=== PATIENT | male | born 1945 | race Caucasian/White ===

== ENCOUNTER 2020-08-17 16:31 | Inpatient (IN) | payer OTHER ==
[~2020-08-17] VITALS: Ht 185.4 cm; Wt 70.0 kg
[2020-08-17] MEDS: PROPOFOL 100 ML IV SCH (01:00)
[2020-08-17] MEDS ORDERED: ACETAMINOPHEN 325 MG RECT SUPP PR ONE (16:44)
[2020-08-17] MEDS ORDERED: DEXTROSE 50% SYRINGE 50 ML IV ONE (16:56)
[2020-08-17] MEDS ORDERED: DEXTROSE (50%) 50ML SYRG IV ONE (17:15)
[2020-08-17 17:20] LABS: Basophils # (auto) 0.1 10 ^3/uL (0-0.2); Basophils % (auto) 1.6 % (0.0-2.0); Eosinophils # (auto) 0.1 10 ^3/uL (0-0.8); Eosinophils % (auto) 1.5 % (0.0-7.0); Hematocrit 39.8 % (41.0-53.0); Hemoglobin 14.3 g/dL (13.5-17.5); Lymphocytes # (auto) 2.3 10 ^3/uL (0.4-5.4); Lymphocytes % (auto) 45.9 % (10.0-50.0); Mean Corpuscular Hgb Conc. 35.9 g/dL (32.0-36.0); Mean Corpuscular Volume 100.4 fL (80.0-100.0); Monocytes # (auto) 0.3 10 ^3/uL (0-1.3); Monocytes % (auto) 5.6 % (0.0-12.0); Neutrophils # (auto) 2.2 10 ^3/uL (1.6-8.6); Neutrophils % (auto) 45.4 % (37.0-80.0); Nucleated Red Blood Cells % 0.1 %; Red Blood Cells 3.96 10^6/uL (4.5-5.90); White Blood Cell 4.9 10^3/uL (4.4-10.8)
[2020-08-17 17:23] LABS: Urine WBC None Seen /hpf (0 - 3)
[2020-08-17] MEDS ORDERED: ETOMIDATE (2MG/ML) 20ML VIAL IV ONE (17:30)
[2020-08-17] MEDS ORDERED: ROCURONIUM 10MG/ML 10ML VIAL IV ONE ×2 (17:30→17:45)
[2020-08-17 17:33] LABS: Urine Bacteria NONE SEEN /hpf (None Seen); Urine Blood Negative /uL (Negative); Urine Specific Gravity 1.003 (1.001-1.035)
[2020-08-17 17:36] LABS: Lactic Acid w/Reflex 5.2 mmol/L (0.4-2.0)
[2020-08-17] MEDS: MIDAZOLAM DRIP 50 mg/50mL 50 ML IV SCH ×2 (17:38→20:05)
[2020-08-17 17:46] LABS: INR 0.97 (0.9-1.15); Partial Thromboplastin Time 24.2 sec (23.0-31.2)
[2020-08-17 17:49] LABS: Amphetamine Screen, Urine NEGATIVE (NEGATIVE); Barbiturate Scree,Urine NEGATIVE (NEGATIVE); Benzodiazephine Screen, Urine NEGATIVE (NEGATIVE); Cannabinoid Screen, Urine NEGATIVE (NEGATIVE); Cocaine Screen, Urine NEGATIVE (NEGATIVE); Opiate Scree,Urine NEGATIVE (NEGATIVE); Phencyclidine Screen, Urine NEGATIVE (NEGATIVE)
[2020-08-17 17:50] LABS: Albumin 2.7 g/dL (3.4-5.0); BUN/Creatinine Ratio 8.4; Calcium 7.4 mg/dL (8.5-10.1); Magnesium 1.6 mg/dL (1.6-2.6); Potassium 4.7 mmol/L (3.5-5.1)
[2020-08-17 17:53] VITALS: BP 113/57
[2020-08-17 17:55] LABS: Bilirubin, Total 0.3 mg/dL (0.2-1.0); Total Protein 5.9 g/dL (6.4-8.2)
[2020-08-17] MEDS: NOREPINEPHRINE 8 MG/250ML KIT 250 ML IV SCH (18:45)
[2020-08-17 19:49] VITALS: BP 96/63
[2020-08-17 20:39] VITALS: BP 96/63
[2020-08-17] MEDS ORDERED: cefTRIAXone 1GM/50ML D5W 50 ML IV ONE (20:45)
[2020-08-17] MEDS ORDERED: NITROGLYCERIN 0.4 MG SL TAB SL PRN (20:45)
[2020-08-17] MEDS ORDERED: MORPHINE SULFATE INJECTION 2 MG/ML SYRG IV PRN (20:45)
[2020-08-17] MEDS ORDERED: ONDANSETRON HCL 4 MG/2 ML VIAL IV PRN (20:45)
[2020-08-17 23:20] VITALS: BP 107/62
[2020-08-17] MEDS ORDERED: ENOXAPARIN SOD 100 MG/1 ML SYRINGE SC ONE (23:30)
[2020-08-18] VITALS (102 sets, daily range): BP systolic 80–134; BP diastolic 49–81
[2020-08-18] MEDS: SODIUM CHLORIDE 0.9% 1,000 ML IV SCH ×3 (01:41→17:22)
[2020-08-18 04:56] LABS: Basophils # (auto) 0.1 10 ^3/uL (0-0.2); Basophils % (auto) 0.7 % (0.0-2.0); Eosinophils # (auto) 0 10 ^3/uL (0-0.8); Eosinophils % (auto) 0.2 % (0.0-7.0); Hemoglobin 14.2 g/dL (13.5-17.5); Lymphocytes # (auto) 1.5 10 ^3/uL (0.4-5.4); Mean Corpuscular Hemoglobin 36.1 pg (28.0-32.0); Monocytes # (auto) 0.5 10 ^3/uL (0-1.3); Neutrophils # (auto) 5.6 10 ^3/uL (1.6-8.6); Red Cell Distribution Width 13.3 % (11.8-14.3)
[2020-08-18 04:58] LABS: Hematocrit 39.3 % (41.0-53.0); Lymphocytes % (auto) 19.9 % (10.0-50.0); Mean Corpuscular Hgb Conc. 36.1 g/dL (32.0-36.0); Mean Corpuscular Volume 100.1 fL (80.0-100.0); Monocytes % (auto) 6.6 % (0.0-12.0); Neutrophils % (auto) 72.6 % (37.0-80.0); Nucleated Red Blood Cells % 0.1 %; Red Blood Cells 3.93 10^6/uL (4.5-5.90); White Blood Cell 7.7 10^3/uL (4.4-10.8)
[2020-08-18 05:16] LABS: Albumin 2.9 g/dL (3.4-5.0); Calcium 7.6 mg/dL (8.5-10.1); Potassium 3.7 mmol/L (3.5-5.1)
[2020-08-18 05:23] LABS: BUN/Creatinine Ratio 13.9; Bilirubin, Total 1.1 mg/dL (0.2-1.0); Total Protein 6.1 g/dL (6.4-8.2)
[2020-08-18] MEDS ORDERED: MAGNESIUM SULFATE 1GM/100ML 100 ML IV ONE (09:15)
[2020-08-18 09:43] LABS: Cholesterol 124 mg/dL (< 200); HDL Cholesterol 70 mg/dL (40-59); LDL Cholesterol 49 mg/dL (< 100); Triglycerides 84 mg/dL (< 150)
[2020-08-18] MEDS: cefTRIAXone 1GM/50ML D5W 50 ML IV SCH (09:48)
[2020-08-18] MEDS: POTASSIUM CHL 20MEQ/100ML 100 ML IV SCH ×2 (09:48→11:57)
[2020-08-18] MEDS: ASPirin 81 mg TAB PO SCH (09:49)
[2020-08-18] MEDS: PANTOPRAZOLE 40 MG/10 ML VIAL INJ IV SCH (09:49)
[2020-08-18] MEDS: MIDAZOLAM DRIP 50 mg/50mL 50 ML IV SCH ×3 (10:00→23:30)
[2020-08-18] MEDS: ENOXAPARIN SOD 40 MG/0.4 ML SYRINGE SC SCH (10:08)
[2020-08-18] MEDS: PROPOFOL 100 ML IV SCH ×2 (12:20→18:09)
[2020-08-18] MEDS: NOREPINEPHRINE 8 MG/250ML KIT 250 ML IV SCH ×2 (12:20→18:18)
[2020-08-18] MEDS ORDERED: FOLIC ACID 1 MG, MULTIPLE VITAMIN 10 ML, MAGNESIUM SULF SDV 50% 8 MEQ, THIAMINE INJ 100... INJ ONE ×5 (14:15)
[2020-08-18 15:26] LABS: Folate (Folic Acid) 15.41 ng/mL (5.38-24)
[2020-08-18] MEDS ORDERED: SODIUM CHLORIDE 0.9% 2,000 ML IV ONE (16:45)
[2020-08-18] MEDS: IPRATROPIUM BROM 0.5 MG/2.5ML INH SOL NEB SCH (18:44)
[2020-08-18] MEDS: ALBUTEROL SULF 2.5 MG/0.5ML(0.5%) NEB SOLN NEB SCH (18:44)
[2020-08-19] VITALS (80 sets, daily range): BP systolic 83–135; BP diastolic 48–79
[2020-08-19] MEDS: IPRATROPIUM BROM 0.5 MG/2.5ML INH SOL NEB SCH ×4 (00:21→18:36)
[2020-08-19] MEDS: ALBUTEROL SULF 2.5 MG/0.5ML(0.5%) NEB SOLN NEB SCH ×4 (00:21→18:36)
[2020-08-19] MEDS: SODIUM CHLORIDE 0.9% 1,000 ML IV SCH ×3 (01:20→21:56)
[2020-08-19 05:17] LABS: Basophils # (auto) 0.1 10 ^3/uL (0-0.2); Eosinophils # (auto) 0 10 ^3/uL (0-0.8); Hemoglobin 12.6 g/dL (13.5-17.5)
[2020-08-19 05:19] LABS: Basophils % (auto) 0.9 % (0.0-2.0); Eosinophils % (auto) 0.4 % (0.0-7.0); Hematocrit 36.1 % (41.0-53.0); Lymphocytes # (auto) 0.9 10 ^3/uL (0.4-5.4); Lymphocytes % (auto) 10.1 % (10.0-50.0); Mean Corpuscular Hemoglobin 35.4 pg (28.0-32.0); Mean Corpuscular Hgb Conc. 34.8 g/dL (32.0-36.0); Mean Corpuscular Volume 101.7 fL (80.0-100.0); Monocytes # (auto) 0.7 10 ^3/uL (0-1.3); Monocytes % (auto) 7.3 % (0.0-12.0); Neutrophils # (auto) 7.3 10 ^3/uL (1.6-8.6); Neutrophils % (auto) 81.3 % (37.0-80.0); Nucleated Red Blood Cells % 0.1 %; Red Blood Cells 3.55 10^6/uL (4.5-5.90); Red Cell Distribution Width 13.5 % (11.8-14.3)
[2020-08-19 05:35] LABS: Albumin 2.2 g/dL (3.4-5.0); Bilirubin, Direct 0.2 mg/dL (0-0.2); Calcium 7.2 mg/dL (8.5-10.1); Magnesium 2.3 mg/dL (1.6-2.6); Potassium 4.2 mmol/L (3.5-5.1)
[2020-08-19 05:41] LABS: BUN/Creatinine Ratio 16.2; Bilirubin, Total 0.6 mg/dL (0.2-1.0); Total Protein 4.8 g/dL (6.4-8.2)
[2020-08-19] MEDS: PROPOFOL 100 ML IV SCH (06:04)
[2020-08-19] MEDS: MIDAZOLAM DRIP 50 mg/50mL 50 ML IV SCH ×2 (09:22→19:30)
[2020-08-19] MEDS: cefTRIAXone 1GM/50ML D5W 50 ML IV SCH (09:22)
[2020-08-19] MEDS: ASPirin 81 mg TAB PO SCH (09:33)
[2020-08-19] MEDS: PANTOPRAZOLE 40 MG/10 ML VIAL INJ IV SCH (09:35)
[2020-08-19] MEDS: ENOXAPARIN SOD 40 MG/0.4 ML SYRINGE SC SCH (09:35)
[2020-08-19] MEDS: FOLIC ACID 1 MG, MULTIPLE VITAMIN 10 ML, MAGNESIUM SULF SDV 50% 8 MEQ, THIAMINE INJ 100... INJ SCH ×5 (13:14)
[2020-08-19] MEDS: NOREPINEPHRINE 8 MG/250ML KIT 250 ML IV SCH (18:15)
[2020-08-20] VITALS (87 sets, daily range): BP systolic 86–159; BP diastolic 48–102
[2020-08-20] MEDS: IPRATROPIUM BROM 0.5 MG/2.5ML INH SOL NEB SCH ×4 (00:13→18:27)
[2020-08-20] MEDS: ALBUTEROL SULF 2.5 MG/0.5ML(0.5%) NEB SOLN NEB SCH ×4 (00:13→18:27)
[2020-08-20] MEDS: PROPOFOL 100 ML IV SCH (02:55)
[2020-08-20] MEDS: MIDAZOLAM DRIP 50 mg/50mL 50 ML IV SCH ×2 (05:08→22:48)
[2020-08-20 05:46] LABS: Basophils # (auto) 0 10 ^3/uL (0-0.2); Eosinophils # (auto) 0 10 ^3/uL (0-0.8); Lymphocytes # (auto) 0.7 10 ^3/uL (0.4-5.4); Nucleated Red Blood Cells % 0.1 %; Red Blood Cells 3.44 10^6/uL (4.5-5.90); Red Cell Distribution Width 13.3 % (11.8-14.3)
[2020-08-20 05:50] LABS: Basophils % (auto) 0.5 % (0.0-2.0); Eosinophils % (auto) 0.4 % (0.0-7.0); Hematocrit 34.9 % (41.0-53.0); Hemoglobin 12.1 g/dL (13.5-17.5); Lymphocytes % (auto) 7.7 % (10.0-50.0); Mean Corpuscular Hemoglobin 35.1 pg (28.0-32.0); Mean Corpuscular Hgb Conc. 34.6 g/dL (32.0-36.0); Mean Corpuscular Volume 101.4 fL (80.0-100.0); Monocytes # (auto) 0.5 10 ^3/uL (0-1.3); Monocytes % (auto) 5.1 % (0.0-12.0); Neutrophils # (auto) 7.8 10 ^3/uL (1.6-8.6); Neutrophils % (auto) 86.3 % (37.0-80.0); White Blood Cell 9.1 10^3/uL (4.4-10.8)
[2020-08-20 06:17] LABS: Potassium 3.4 mmol/L (3.5-5.1)
[2020-08-20 06:26] LABS: Albumin 2.1 g/dL (3.4-5.0); BUN/Creatinine Ratio 12.2; Bilirubin, Total 0.8 mg/dL (0.2-1.0); Calcium 7.4 mg/dL (8.5-10.1); Magnesium 2.1 mg/dL (1.6-2.6); Total Protein 5.2 g/dL (6.4-8.2)
[2020-08-20] MEDS: cefTRIAXone 1GM/50ML D5W 50 ML IV SCH ×2 (09:00→12:36)
[2020-08-20] MEDS: ASPirin 81 mg TAB PO SCH (10:30)
[2020-08-20] MEDS: PANTOPRAZOLE 40 MG/10 ML VIAL INJ IV SCH (10:30)
[2020-08-20] MEDS: ENOXAPARIN SOD 40 MG/0.4 ML SYRINGE SC SCH (10:30)
[2020-08-20] MEDS ORDERED: POTASSIUM CHL 20MEQ/100ML 100 ML IV ONE (10:45)
[2020-08-20] MEDS: SODIUM CHLORIDE 0.9% 1,000 ML IV SCH ×2 (10:52→18:45)
[2020-08-20] MEDS: FOLIC ACID 1 MG, MULTIPLE VITAMIN 10 ML, MAGNESIUM SULF SDV 50% 8 MEQ, THIAMINE INJ 100... INJ SCH ×5 (12:37)
[2020-08-20] MEDS: fentaNYL Drip 2500mCg/250mlNS 250 ML IV SCH (19:30)
[2020-08-20] MEDS: chlordiazePOXIDE HCL 25 MG CAP PO PRN (20:05)
[2020-08-20] MEDS: ACETAMINOPHEN 325 MG TAB PO PRN (20:05)
[2020-08-21] VITALS (106 sets, daily range): BP systolic 96–136; BP diastolic 51–87
[2020-08-21] MEDS: IPRATROPIUM BROM 0.5 MG/2.5ML INH SOL NEB SCH ×5 (00:02→23:45)
[2020-08-21] MEDS: ALBUTEROL SULF 2.5 MG/0.5ML(0.5%) NEB SOLN NEB SCH ×5 (00:02→23:45)
[2020-08-21] MEDS: MIDAZOLAM DRIP 50 mg/50mL 50 ML IV SCH ×3 (04:22→19:43)
[2020-08-21] MEDS: SODIUM CHLORIDE 0.9% 1,000 ML IV SCH ×2 (04:45→14:56)
[2020-08-21] MEDS: NOREPINEPHRINE 8 MG/250ML KIT 250 ML IV SCH ×2 (04:50→18:15)
[2020-08-21 05:31] LABS: Potassium 3.4 mmol/L (3.5-5.1)
[2020-08-21 05:38] LABS: Albumin 1.8 g/dL (3.4-5.0); BUN/Creatinine Ratio 17.9; Bilirubin, Total 0.6 mg/dL (0.2-1.0); Calcium 7.4 mg/dL (8.5-10.1); Total Protein 4.8 g/dL (6.4-8.2)
[2020-08-21] MEDS: ASPirin 81 mg TAB PO SCH (11:10)
[2020-08-21] MEDS: ENOXAPARIN SOD 40 MG/0.4 ML SYRINGE SC SCH (11:11)
[2020-08-21] MEDS: PANTOPRAZOLE 40 MG/10 ML VIAL INJ IV SCH (11:11)
[2020-08-21] MEDS: FOLIC ACID 1 MG, MULTIPLE VITAMIN 10 ML, MAGNESIUM SULF SDV 50% 8 MEQ, THIAMINE INJ 100... INJ SCH ×5 (14:28)
[2020-08-21] MEDS: PROPOFOL 100 ML IV SCH (17:30)
[2020-08-21] MEDS: fentaNYL Drip 2500mCg/250mlNS 250 ML IV SCH (19:30)
[2020-08-21] MEDS: ACETAMINOPHEN 325 MG TAB PO PRN (19:55)
[2020-08-21] MEDS: chlordiazePOXIDE HCL 25 MG CAP PO PRN (19:55)
[2020-08-22] VITALS (85 sets, daily range): BP systolic 96–158; BP diastolic 51–85
[2020-08-22] MEDS: SODIUM CHLORIDE 0.9% 1,000 ML IV SCH ×3 (00:45→23:17)
[2020-08-22 05:31] LABS: Basophils # (auto) 0 10 ^3/uL (0-0.2); Hemoglobin 11.2 g/dL (13.5-17.5); Monocytes # (auto) 0.8 10 ^3/uL (0-1.3)
[2020-08-22 05:36] LABS: Basophils % (auto) 0.3 % (0.0-2.0); Eosinophils # (auto) 0.2 10 ^3/uL (0-0.8); Eosinophils % (auto) 1.9 % (0.0-7.0); Hematocrit 32.3 % (41.0-53.0); Lymphocytes # (auto) 0.9 10 ^3/uL (0.4-5.4); Lymphocytes % (auto) 10.7 % (10.0-50.0); Mean Corpuscular Hemoglobin 35.5 pg (28.0-32.0); Mean Corpuscular Hgb Conc. 34.8 g/dL (32.0-36.0); Mean Corpuscular Volume 102.1 fL (80.0-100.0); Monocytes % (auto) 9.5 % (0.0-12.0); Neutrophils # (auto) 6.5 10 ^3/uL (1.6-8.6); Neutrophils % (auto) 77.6 % (37.0-80.0); Nucleated Red Blood Cells % 0.1 %; Red Blood Cells 3.16 10^6/uL (4.5-5.90); Red Cell Distribution Width 13.5 % (11.8-14.3); White Blood Cell 8.4 10^3/uL (4.4-10.8)
[2020-08-22] MEDS: IPRATROPIUM BROM 0.5 MG/2.5ML INH SOL NEB SCH ×3 (05:55→18:27)
[2020-08-22] MEDS: ALBUTEROL SULF 2.5 MG/0.5ML(0.5%) NEB SOLN NEB SCH ×3 (05:55→18:27)
[2020-08-22 06:04] LABS: Albumin 1.8 g/dL (3.4-5.0); Calcium 7.8 mg/dL (8.5-10.1); Potassium 3.5 mmol/L (3.5-5.1)
[2020-08-22 06:08] LABS: BUN/Creatinine Ratio 25.8; Bilirubin, Total 0.7 mg/dL (0.2-1.0); Total Protein 5.1 g/dL (6.4-8.2)
[2020-08-22] MEDS: MIDAZOLAM DRIP 50 mg/50mL 50 ML IV SCH ×2 (07:30→17:30)
[2020-08-22] MEDS: POTASSIUM CHL 20MEQ/100ML 100 ML IV SCH ×2 (09:50→12:40)
[2020-08-22] MEDS: cefTRIAXone 1GM/50ML D5W 50 ML IV SCH (09:50)
[2020-08-22] MEDS: ASPirin 81 mg TAB PO SCH (09:51)
[2020-08-22] MEDS: PANTOPRAZOLE 40 MG/10 ML VIAL INJ IV SCH (09:51)
[2020-08-22] MEDS: ENOXAPARIN SOD 40 MG/0.4 ML SYRINGE SC SCH (09:51)
[2020-08-22] MEDS: FOLIC ACID 1 MG, MULTIPLE VITAMIN 10 ML, MAGNESIUM SULF SDV 50% 8 MEQ, THIAMINE INJ 100... INJ SCH ×5 (12:42)
[2020-08-22] MEDS: chlordiazePOXIDE HCL 25 MG CAP PO PRN (15:01)
[2020-08-22] MEDS: MORPHINE SULFATE INJECTION 2 MG/ML SYRG IV PRN (17:02)
[2020-08-22] MEDS: PROPOFOL 100 ML IV SCH (17:30)
[2020-08-22] MEDS: NOREPINEPHRINE 8 MG/250ML KIT 250 ML IV SCH (18:15)
[2020-08-22] MEDS: fentaNYL Drip 2500mCg/250mlNS 250 ML IV SCH (19:30)
[2020-08-23] VITALS (50 sets, daily range): BP systolic 101–175; BP diastolic 53–81
[2020-08-23] MEDS: ALBUTEROL SULF 2.5 MG/0.5ML(0.5%) NEB SOLN NEB SCH ×3 (00:39→18:22)
[2020-08-23] MEDS: IPRATROPIUM BROM 0.5 MG/2.5ML INH SOL NEB SCH ×3 (00:39→18:22)
[2020-08-23] MEDS: MORPHINE SULFATE INJECTION 2 MG/ML SYRG IV PRN ×2 (01:59→17:26)
[2020-08-23] MEDS ORDERED: FUROSEMIDE 40 MG/4 ML VIAL IV ONE (02:30)
[2020-08-23] MEDS: MIDAZOLAM DRIP 50 mg/50mL 50 ML IV SCH (03:30)
[2020-08-23] MEDS: hydrALAZINE HCL 20 MG/ML VL IV PRN (03:56)
[2020-08-23] MEDS: ACETAMINOPHEN 325 MG TAB PO PRN ×2 (04:09→20:19)
[2020-08-23 05:52] LABS: Calcium 8.3 mg/dL (8.5-10.1); Potassium 3.7 mmol/L (3.5-5.1)
[2020-08-23 05:56] LABS: BUN/Creatinine Ratio 28.6; Bilirubin, Total 0.7 mg/dL (0.2-1.0); Total Protein 6.1 g/dL (6.4-8.2)
[2020-08-23] MEDS: SODIUM CHLORIDE 0.9% 1,000 ML IV SCH (07:27)
[2020-08-23] MEDS: cefTRIAXone 1GM/50ML D5W 50 ML IV SCH (09:33)
[2020-08-23] MEDS: ASPirin 81 mg TAB PO SCH (09:34)
[2020-08-23] MEDS: ENOXAPARIN SOD 40 MG/0.4 ML SYRINGE SC SCH (09:34)
[2020-08-23] MEDS: METOPROLOL TARTRATE 50 MG TAB PO SCH ×2 (09:34→21:56)
[2020-08-23] MEDS: PANTOPRAZOLE 40 MG/10 ML VIAL INJ IV SCH (09:34)
[2020-08-23] MEDS: chlordiazePOXIDE HCL 25 MG CAP PO PRN ×2 (09:35→18:03)
[2020-08-23] MEDS ORDERED: FUROSEMIDE 20 MG/2 ML VIAL IV ONE (10:45)
[2020-08-23] MEDS: FOLIC ACID 1 MG, MULTIPLE VITAMIN 10 ML, MAGNESIUM SULF SDV 50% 8 MEQ, THIAMINE INJ 100... INJ SCH ×5 (13:18)
[2020-08-23] MEDS: NOREPINEPHRINE 8 MG/250ML KIT 250 ML IV SCH (18:03)
[2020-08-24] VITALS (31 sets, daily range): BP systolic 111–138; BP diastolic 52–96
[2020-08-24] MEDS: ALBUTEROL SULF 2.5 MG/0.5ML(0.5%) NEB SOLN NEB SCH ×4 (00:29→18:10)
[2020-08-24] MEDS: IPRATROPIUM BROM 0.5 MG/2.5ML INH SOL NEB SCH ×4 (00:29→18:10)
[2020-08-24] MEDS: MORPHINE SULFATE INJECTION 2 MG/ML SYRG IV PRN ×2 (06:11→11:11)
[2020-08-24 07:02] LABS: Eosinophils # (auto) 0 10 ^3/uL (0-0.8); Monocytes # (auto) 0.7 10 ^3/uL (0-1.3); White Blood Cell 9.7 10^3/uL (4.4-10.8)
[2020-08-24 07:05] LABS: Basophils # (auto) 0 10 ^3/uL (0-0.2); Basophils % (auto) 0.3 % (0.0-2.0); Hematocrit 33.3 % (41.0-53.0); Hemoglobin 11.4 g/dL (13.5-17.5); Lymphocytes # (auto) 0.6 10 ^3/uL (0.4-5.4); Lymphocytes % (auto) 5.9 % (10.0-50.0); Mean Corpuscular Hemoglobin 35.2 pg (28.0-32.0); Mean Corpuscular Hgb Conc. 34.3 g/dL (32.0-36.0); Mean Corpuscular Volume 102.4 fL (80.0-100.0); Monocytes % (auto) 7.4 % (0.0-12.0); Neutrophils # (auto) 8.4 10 ^3/uL (1.6-8.6); Neutrophils % (auto) 86.4 % (37.0-80.0); Red Blood Cells 3.25 10^6/uL (4.5-5.90); Red Cell Distribution Width 13.3 % (11.8-14.3)
[2020-08-24 07:22] LABS: BUN/Creatinine Ratio 41.2; Calcium 8.7 mg/dL (8.5-10.1); Potassium 3.4 mmol/L (3.5-5.1)
[2020-08-24] MEDS: cefTRIAXone 1GM/50ML D5W 50 ML IV SCH (08:24)
[2020-08-24] MEDS ORDERED: FUROSEMIDE 20 MG/2 ML VIAL ONE (11:03)
[2020-08-24] MEDS: PANTOPRAZOLE 40 MG/10 ML VIAL INJ IV SCH (11:09)
[2020-08-24] MEDS: ENOXAPARIN SOD 40 MG/0.4 ML SYRINGE SC SCH (11:09)
[2020-08-24] MEDS: ASPirin 81 mg TAB PO SCH (11:10)
[2020-08-24] MEDS: METOPROLOL TARTRATE 50 MG TAB PO SCH ×2 (11:10→22:46)
[2020-08-24] MEDS ORDERED: FUROSEMIDE 20 MG/2 ML VIAL IV ONE (11:15)
[2020-08-24] MEDS: FOLIC ACID 1 MG, MULTIPLE VITAMIN 10 ML, MAGNESIUM SULF SDV 50% 8 MEQ, THIAMINE INJ 100... INJ SCH ×5 (12:52)
[2020-08-24] MEDS: POTASSIUM CHL 20MEQ/100ML 100 ML IV SCH ×2 (16:08→17:44)
[2020-08-24] MEDS: NOREPINEPHRINE 8 MG/250ML KIT 250 ML IV SCH (18:15)
[2020-08-24] MEDS: ACETAMINOPHEN 650 MG RECT SUPP PR PRN (21:15)
[2020-08-25] VITALS (31 sets, daily range): BP systolic 38–165; BP diastolic 63–97
[2020-08-25] MEDS: ALBUTEROL SULF 2.5 MG/0.5ML(0.5%) NEB SOLN NEB SCH ×5 (00:11→22:31)
[2020-08-25] MEDS: IPRATROPIUM BROM 0.5 MG/2.5ML INH SOL NEB SCH ×5 (00:11→22:32)
[2020-08-25] MEDS: hydrALAZINE HCL 20 MG/ML VL IV PRN (05:40)
[2020-08-25] MEDS ORDERED: AZITHROMYCIN 500MG/ 250ML 250 ML IV SCH (10:00)
[2020-08-25] MEDS: cefTRIAXone 1GM/50ML D5W 50 ML IV SCH (10:52)
[2020-08-25] MEDS ORDERED: FUROSEMIDE 40 MG/4 ML VIAL IV ONE (11:00)
[2020-08-25] MEDS: METOPROLOL TARTRATE 50 MG TAB PO SCH ×2 (11:00→21:08)
[2020-08-25] MEDS: ASPirin 81 mg TAB PO SCH (11:00)
[2020-08-25] MEDS: PANTOPRAZOLE 40 MG/10 ML VIAL INJ IV SCH (11:00)
[2020-08-25] MEDS: ENOXAPARIN SOD 40 MG/0.4 ML SYRINGE SC SCH (11:00)
[2020-08-25 11:36] LABS: Basophils # (auto) 0.1 10 ^3/uL (0-0.2); Eosinophils # (auto) 0 10 ^3/uL (0-0.8); Lymphocytes # (auto) 0.6 10 ^3/uL (0.4-5.4); Lymphocytes % (auto) 4.9 % (10.0-50.0); Neutrophils # (auto) 11.5 10 ^3/uL (1.6-8.6)
[2020-08-25 11:38] LABS: Basophils % (auto) 0.4 % (0.0-2.0); Eosinophils % (auto) 0.1 % (0.0-7.0); Hematocrit 33.1 % (41.0-53.0); Hemoglobin 11.2 g/dL (13.5-17.5); Mean Corpuscular Hemoglobin 34.9 pg (28.0-32.0); Mean Corpuscular Hgb Conc. 33.9 g/dL (32.0-36.0); Mean Corpuscular Volume 103.1 fL (80.0-100.0); Monocytes # (auto) 0.6 10 ^3/uL (0-1.3); Monocytes % (auto) 4.4 % (0.0-12.0); Neutrophils % (auto) 90.2 % (37.0-80.0); Nucleated Red Blood Cells % 0.1 %; Red Blood Cells 3.21 10^6/uL (4.5-5.90); Red Cell Distribution Width 13.8 % (11.8-14.3); White Blood Cell 12.8 10^3/uL (4.4-10.8)
[2020-08-25 11:59] LABS: Calcium 8.9 mg/dL (8.5-10.1); Potassium 3.4 mmol/L (3.5-5.1)
[2020-08-25 12:03] LABS: BUN/Creatinine Ratio 55.2; Bilirubin, Total 0.5 mg/dL (0.2-1.0); Total Protein 5.7 g/dL (6.4-8.2)
[2020-08-25] MEDS: FOLIC ACID 1 MG, MULTIPLE VITAMIN 10 ML, MAGNESIUM SULF SDV 50% 8 MEQ, THIAMINE INJ 100... INJ SCH ×5 (12:20)
[2020-08-25] MEDS: POTASSIUM CHL 20MEQ/100ML 100 ML IV SCH ×2 (13:00→15:58)
[2020-08-25] MEDS: ceFAZolin 1GM/50ML 50 ML IV SCH ×2 (15:25→21:11)
[2020-08-25] MEDS: NOREPINEPHRINE 8 MG/250ML KIT 250 ML IV SCH (19:30)
[2020-08-25] MEDS: chlordiazePOXIDE HCL 25 MG CAP PO PRN (21:08)
[2020-08-25] MEDS: ACETAMINOPHEN 650 MG RECT SUPP PR PRN (21:09)
[2020-08-26] VITALS (35 sets, daily range): BP systolic 124–162; BP diastolic 59–85
[2020-08-26] MEDS: ALBUTEROL SULF 2.5 MG/0.5ML(0.5%) NEB SOLN NEB SCH ×6 (02:19→22:10)
[2020-08-26] MEDS: IPRATROPIUM BROM 0.5 MG/2.5ML INH SOL NEB SCH ×6 (02:19→22:10)
[2020-08-26] MEDS: hydrALAZINE HCL 20 MG/ML VL IV PRN (02:29)
[2020-08-26] MEDS: MORPHINE SULFATE INJECTION 2 MG/ML SYRG IV PRN ×2 (05:21→23:31)
[2020-08-26] MEDS: ceFAZolin 1GM/50ML 50 ML IV SCH ×3 (06:38→21:35)
[2020-08-26] MEDS ORDERED: levoFLOXacin 500MG 100 ML IV SCH (10:00)
[2020-08-26] MEDS: POTASSIUM EFFERVESENT TAB 25 MEQ GT SCH (10:12)
[2020-08-26] MEDS: PANTOPRAZOLE 40 MG/10 ML VIAL INJ IV SCH (10:12)
[2020-08-26] MEDS: ASPirin 81 mg TAB PO SCH (10:12)
[2020-08-26] MEDS: METOPROLOL TARTRATE 50 MG TAB PO SCH ×2 (10:13→21:35)
[2020-08-26] MEDS: ENOXAPARIN SOD 40 MG/0.4 ML SYRINGE SC SCH (10:13)
[2020-08-26] MEDS ORDERED: POTASSIUM EFFERVESENT TAB 25 MEQ GT ONE (11:15)
[2020-08-26] MEDS ORDERED: TPN PER PHARMACY 0 ML IV SCH (11:45)
[2020-08-26] MEDS: FOLIC ACID 1 MG, MULTIPLE VITAMIN 10 ML, MAGNESIUM SULF SDV 50% 8 MEQ, THIAMINE INJ 100... INJ SCH ×5 (12:15)
[2020-08-26] MEDS: D5W 5% 1,000 ML IV SCH (12:16)
[2020-08-26 12:34] LABS: Albumin 1.7 g/dL (3.4-5.0); Bilirubin, Direct 0.2 mg/dL (0-0.2); Bilirubin, Total 0.4 mg/dL (0.2-1.0); Magnesium 2.4 mg/dL (1.6-2.6); Phosphorus 3.9 mg/dL (2.5-4.90); Total Protein 5.5 g/dL (6.4-8.2)
[2020-08-26] MEDS: NOREPINEPHRINE 8 MG/250ML KIT 250 ML IV SCH (18:15)
[2020-08-26] MEDS ORDERED: TPN PER PHARMACY IV NR ×8 (20:00)
[2020-08-26] MEDS: chlordiazePOXIDE HCL 25 MG CAP PO PRN (21:35)
[2020-08-26] MEDS: ACETAMINOPHEN 650 MG RECT SUPP PR PRN (21:36)
[2020-08-27] VITALS (68 sets, daily range): BP systolic 48–155; BP diastolic 24–87
[2020-08-27] MEDS ORDERED: DEXTROSE (50%) 50ML SYRG IV SCH
[2020-08-27] MEDS: InsuLIN REG 1unit/0.01ml Soln (100units/ml) SC SCH ×5 (00:27→23:38)
[2020-08-27] MEDS: ACCU-CHEK COMFORT CURVE STRIP VI SCH ×5 (00:28→23:36)
[2020-08-27] MEDS: IPRATROPIUM BROM 0.5 MG/2.5ML INH SOL NEB SCH ×3 (02:09→22:23)
[2020-08-27] MEDS: ALBUTEROL SULF 2.5 MG/0.5ML(0.5%) NEB SOLN NEB SCH ×3 (02:09→22:23)
[2020-08-27] MEDS: ceFAZolin 1GM/50ML 50 ML IV SCH (05:14)
[2020-08-27 05:40] LABS: Albumin 1.8 g/dL (3.4-5.0); Calcium 8.5 mg/dL (8.5-10.1); Magnesium 2.7 mg/dL (1.6-2.6); Potassium 3.3 mmol/L (3.5-5.1)
[2020-08-27 05:46] LABS: BUN/Creatinine Ratio 51.7; Bilirubin, Total 0.4 mg/dL (0.2-1.0); Phosphorus 3.3 mg/dL (2.5-4.90); Pre Albumin 3.8 mg/dL (20.0-40.0); Total Protein 5.8 g/dL (6.4-8.2)
[2020-08-27] MEDS: ASPirin 81 mg TAB PO SCH (09:31)
[2020-08-27] MEDS: PANTOPRAZOLE 40 MG/10 ML VIAL INJ IV SCH (09:31)
[2020-08-27] MEDS: POTASSIUM EFFERVESENT TAB 25 MEQ GT SCH (09:32)
[2020-08-27] MEDS: ENOXAPARIN SOD 40 MG/0.4 ML SYRINGE SC SCH (09:32)
[2020-08-27] MEDS: METOPROLOL TARTRATE 50 MG TAB PO SCH ×2 (09:32→22:00)
[2020-08-27] MEDS ORDERED: ETOMIDATE (2MG/ML) 20ML VIAL IV ONE (09:38)
[2020-08-27] MEDS ORDERED: ROCURONIUM 10MG/ML 10ML VIAL IV ONE (09:38)
[2020-08-27] MEDS ORDERED: MIDAZOLAM DRIP 50 mg/50mL 50 ML IV ONE (09:39)
[2020-08-27] MEDS: MIDAZOLAM DRIP 50 mg/50mL 50 ML IV SCH ×2 (10:30→20:27)
[2020-08-27] MEDS: PROPOFOL 100 ML IV SCH (10:30)
[2020-08-27] MEDS: fentaNYL Drip 2500mCg/250mlNS 250 ML IV SCH (10:30)
[2020-08-27 11:14] LABS: Eosinophils # (auto) 0.1 10 ^3/uL (0-0.8); Monocytes # (auto) 0.3 10 ^3/uL (0-1.3)
[2020-08-27 11:17] LABS: Basophils # (auto) 0.1 10 ^3/uL (0-0.2); Basophils % (auto) 0.7 % (0.0-2.0); Eosinophils % (auto) 0.6 % (0.0-7.0); Hematocrit 34.1 % (41.0-53.0); Hemoglobin 11.4 g/dL (13.5-17.5); Lymphocytes % (auto) 5.8 % (10.0-50.0); Mean Corpuscular Hemoglobin 34.6 pg (28.0-32.0); Mean Corpuscular Hgb Conc. 33.3 g/dL (32.0-36.0); Mean Corpuscular Volume 103.8 fL (80.0-100.0); Neutrophils # (auto) 14.9 10 ^3/uL (1.6-8.6); Neutrophils % (auto) 90.9 % (37.0-80.0); Nucleated Red Blood Cells % 0.2 %; Red Blood Cells 3.29 10^6/uL (4.5-5.90); Red Cell Distribution Width 13.9 % (11.8-14.3); White Blood Cell 16.4 10^3/uL (4.4-10.8)
[2020-08-27] MEDS ORDERED: AMIODARONE HCL 150 MG in D5W 5% 100 ML IV ONE (11:45)
[2020-08-27] MEDS: FOLIC ACID 1 MG, MULTIPLE VITAMIN 10 ML, MAGNESIUM SULF SDV 50% 8 MEQ, THIAMINE INJ 100... INJ SCH ×5 (12:00)
[2020-08-27] MEDS ORDERED: AMIODARONE 450mg/250ml AE 250 ML IV SCH (12:00)
[2020-08-27] MEDS ORDERED: AMIODARONE HCL (50 MG/ ML) 3 ML VIAL IV ONE (12:11)
[2020-08-27] MEDS: D5W 5% 1,000 ML IV SCH ×2 (12:54→18:02)
[2020-08-27] MEDS: NOREPINEPHRINE 8 MG/250ML KIT 250 ML IV SCH (12:57)
[2020-08-27] MEDS: PHENYLEPHRINE IV 250 ML IV SCH ×2 (12:58→20:50)
[2020-08-27 13:54] LABS: INR 1.14 (0.9-1.15)
[2020-08-27] MEDS: FREE WATER GT SCH ×3 (14:00→22:05)
[2020-08-27] MEDS ORDERED: VANCOMYCIN PER PHARMACY 0 MG IV SCH (15:45)
[2020-08-27] MEDS: POTASSIUM CHL 20MEQ/100ML 100 ML IV SCH ×2 (16:24→18:02)
[2020-08-27] MEDS ORDERED: PIPERACILLIN-TAZOB 3.375GM 100 ML IV SCH (18:00)
[2020-08-27] MEDS: VANCOMYCIN 1GM/250ML 250 ML IV SCH (18:02)
[2020-08-27] MEDS: AMIODARONE 450mg/250ml AE 250 ML IV SCH ×2 (18:07→20:21)
[2020-08-27] MEDS: PIPERACILLIN-TAZOB 3.375GM 100 ML IV SCH (19:25)
[2020-08-27] MEDS ORDERED: TPN PER PHARMACY IV NR ×6 (20:00)
[2020-08-28] VITALS (102 sets, daily range): BP systolic 70–125; BP diastolic 39–69
[2020-08-28] MEDS: PIPERACILLIN-TAZOB 3.375GM 100 ML IV SCH ×4 (01:22→19:03)
[2020-08-28] MEDS: MIDAZOLAM DRIP 50 mg/50mL 50 ML IV SCH ×2 (01:23→09:42)
[2020-08-28] MEDS: FREE WATER GT SCH ×6 (02:00→21:20)
[2020-08-28] MEDS: IPRATROPIUM BROM 0.5 MG/2.5ML INH SOL NEB SCH ×3 (02:03→22:17)
[2020-08-28] MEDS: ALBUTEROL SULF 2.5 MG/0.5ML(0.5%) NEB SOLN NEB SCH ×3 (02:03→22:17)
[2020-08-28] MEDS: PROPOFOL 100 ML IV SCH (04:00)
[2020-08-28] MEDS: PHENYLEPHRINE IV 250 ML IV SCH ×4 (04:50→23:05)
[2020-08-28 05:40] LABS: Potassium 3.4 mmol/L (3.5-5.1)
[2020-08-28 05:41] LABS: Albumin 1.4 g/dL (3.4-5.0); Bilirubin, Total 0.4 mg/dL (0.2-1.0); Calcium 7.7 mg/dL (8.5-10.1); Magnesium 2.2 mg/dL (1.6-2.6); Phosphorus 2.9 mg/dL (2.5-4.90); Total Protein 4.6 g/dL (6.4-8.2)
[2020-08-28] MEDS: ACCU-CHEK COMFORT CURVE STRIP VI SCH ×3 (06:00→17:39)
[2020-08-28] MEDS: InsuLIN REG 1unit/0.01ml Soln (100units/ml) SC SCH ×3 (06:39→17:39)
[2020-08-28] MEDS: D5W 5% 1,000 ML IV SCH ×2 (06:39→20:57)
[2020-08-28] MEDS: fentaNYL Drip 2500mCg/250mlNS 250 ML IV SCH (09:41)
[2020-08-28] MEDS: METOPROLOL TARTRATE 50 MG TAB PO SCH ×2 (10:00→21:20)
[2020-08-28] MEDS: PANTOPRAZOLE 40 MG/10 ML VIAL INJ IV SCH (10:26)
[2020-08-28] MEDS: VANCOMYCIN 1GM/250ML 250 ML IV SCH (10:26)
[2020-08-28] MEDS: ASPirin 81 mg TAB PO SCH (10:26)
[2020-08-28] MEDS: POTASSIUM EFFERVESENT TAB 25 MEQ GT SCH (10:26)
[2020-08-28] MEDS: ENOXAPARIN SOD 40 MG/0.4 ML SYRINGE SC SCH (10:27)
[2020-08-28] MEDS ORDERED: POTASSIUM PHOSPHATE 22 MEQ in SODIUM CHL 0.9% 100 ML IV ONE (12:30)
[2020-08-28] MEDS: FOLIC ACID 1 MG, MULTIPLE VITAMIN 10 ML, MAGNESIUM SULF SDV 50% 8 MEQ, THIAMINE INJ 100... INJ SCH ×5 (14:08)
[2020-08-28 15:15] LABS: Basophils # (auto) 0.1 10 ^3/uL (0-0.2); Eosinophils # (auto) 0.3 10 ^3/uL (0-0.8); Hemoglobin 9.9 g/dL (13.5-17.5); Lymphocytes # (auto) 1.3 10 ^3/uL (0.4-5.4); Lymphocytes % (auto) 7.2 % (10.0-50.0); Mean Corpuscular Volume 104.7 fL (80.0-100.0)
[2020-08-28 15:17] LABS: Basophils % (auto) 0.4 % (0.0-2.0); Eosinophils % (auto) 1.4 % (0.0-7.0); Hematocrit 29.9 % (41.0-53.0); Mean Corpuscular Hemoglobin 34.6 pg (28.0-32.0); Mean Corpuscular Hgb Conc. 33.1 g/dL (32.0-36.0); Monocytes # (auto) 0.5 10 ^3/uL (0-1.3); Monocytes % (auto) 2.6 % (0.0-12.0); Neutrophils # (auto) 15.6 10 ^3/uL (1.6-8.6); Neutrophils % (auto) 88.4 % (37.0-80.0); Red Blood Cells 2.86 10^6/uL (4.5-5.90); Red Cell Distribution Width 14.3 % (11.8-14.3); White Blood Cell 17.6 10^3/uL (4.4-10.8)
[2020-08-28] MEDS: NOREPINEPHRINE 8 MG/250ML KIT 250 ML IV SCH (16:36)
[2020-08-28] MEDS ORDERED: TPN PER PHARMACY IV NR ×6 (20:00)
[2020-08-28] MEDS: AMIODARONE HCL 200 MG TAB PO SCH (21:20)
[2020-08-28] MEDS ORDERED: dilTIAZem 25 MG/5 ML VIAL IV ONE (23:15)
[2020-08-29] VITALS (105 sets, daily range): BP systolic 82–124; BP diastolic 35–71
[2020-08-29] MEDS: PROPOFOL 100 ML IV SCH
[2020-08-29] MEDS: ACCU-CHEK COMFORT CURVE STRIP VI SCH ×4 (00:20→18:26)
[2020-08-29] MEDS: InsuLIN REG 1unit/0.01ml Soln (100units/ml) SC SCH ×4 (00:44→18:00)
[2020-08-29] MEDS: PIPERACILLIN-TAZOB 3.375GM 100 ML IV SCH ×4 (00:45→18:26)
[2020-08-29] MEDS: fentaNYL Drip 2500mCg/250mlNS 250 ML IV SCH ×2 (00:49→15:59)
[2020-08-29] MEDS: PHENYLEPHRINE IV 250 ML IV SCH ×5 (01:00→08:26)
[2020-08-29] MEDS: FREE WATER GT SCH ×6 (01:53→22:58)
[2020-08-29] MEDS: IPRATROPIUM BROM 0.5 MG/2.5ML INH SOL NEB SCH ×5 (02:07→20:53)
[2020-08-29] MEDS: ALBUTEROL SULF 2.5 MG/0.5ML(0.5%) NEB SOLN NEB SCH ×5 (02:07→20:53)
[2020-08-29] MEDS ORDERED: SODIUM CHLORIDE 0.9% 500 ML IV ONE ×2 (02:30→18:15)
[2020-08-29] MEDS: MIDAZOLAM DRIP 50 mg/50mL 50 ML IV SCH ×6 (03:34→22:00)
[2020-08-29] MEDS: VANCOMYCIN 1GM/250ML 250 ML IV SCH ×2 (04:00→22:00)
[2020-08-29 05:43] LABS: INR 1.11 (0.9-1.15); Partial Thromboplastin Time 35.7 sec (23.0-31.2)
[2020-08-29 05:45] LABS: Potassium 4.3 mmol/L (3.5-5.1)
[2020-08-29 05:50] LABS: Albumin 1.3 g/dL (3.4-5.0); BUN/Creatinine Ratio 23.7; Calcium 7.4 mg/dL (8.5-10.1); Phosphorus 5.5 mg/dL (2.5-4.90)
[2020-08-29 05:53] LABS: Bilirubin, Total 0.4 mg/dL (0.2-1.0); Total Protein 4.9 g/dL (6.4-8.2)
[2020-08-29] MEDS ORDERED: EPINEPHrine HCL 1 MG/1 ML AMP ONE ×2 (07:43→07:44)
[2020-08-29] MEDS ORDERED: LIDOCAINE HCL 2% TOP JELLY 5ML TOP ONE (07:43)
[2020-08-29] MEDS ORDERED: ACETYLCYSTEINE 20%(200MG/ML) SOL 4ML NEB ONE (08:15)
[2020-08-29] MEDS: AMIODARONE HCL 200 MG TAB PO SCH ×2 (09:40→22:59)
[2020-08-29] MEDS: ENOXAPARIN SOD 40 MG/0.4 ML SYRINGE SC SCH (09:40)
[2020-08-29] MEDS: PANTOPRAZOLE 40 MG/10 ML VIAL INJ IV SCH (09:40)
[2020-08-29] MEDS: ASPirin 81 mg TAB PO SCH (09:40)
[2020-08-29] MEDS: METOPROLOL TARTRATE 50 MG TAB PO SCH ×2 (10:00→20:13)
[2020-08-29] MEDS ORDERED: DIGOXIN 0.125 MG TAB PO SCH (10:00)
[2020-08-29] MEDS: POTASSIUM EFFERVESENT TAB 25 MEQ GT SCH (10:00)
[2020-08-29] MEDS: PHENYLEPHRINE INJ 80 MG in SODIUM CHL 0.9% 242 ML IV SCH ×2 (10:48→17:58)
[2020-08-29] MEDS: D5W 5% 1,000 ML IV SCH ×2 (11:15→11:39)
[2020-08-29] MEDS: NOREPINEPHRINE 8 MG/250ML KIT 250 ML IV SCH (12:30)
[2020-08-29] MEDS ORDERED: TPN PER PHARMACY IV NR ×9 (20:00)
[2020-08-29] MEDS: APIXABAN 5 MG TAB PO SCH (22:59)
[2020-08-30] VITALS (96 sets, daily range): BP systolic 97–158; BP diastolic 29–71
[2020-08-30] MEDS: D5W 5% 1,000 ML IV SCH (01:08)
[2020-08-30] MEDS: PIPERACILLIN-TAZOB 3.375GM 100 ML IV SCH ×4 (01:08→22:53)
[2020-08-30] MEDS: NOREPINEPHRINE 8 MG/250ML KIT 250 ML IV SCH (01:38)
[2020-08-30] MEDS: PHENYLEPHRINE INJ 80 MG in SODIUM CHL 0.9% 242 ML IV SCH ×3 (01:39→17:01)
[2020-08-30] MEDS: ALBUTEROL SULF 2.5 MG/0.5ML(0.5%) NEB SOLN NEB SCH ×7 (02:11→23:08)
[2020-08-30] MEDS: IPRATROPIUM BROM 0.5 MG/2.5ML INH SOL NEB SCH ×7 (02:11→23:08)
[2020-08-30] MEDS: FREE WATER GT SCH ×3 (04:02→08:47)
[2020-08-30] MEDS: MIDAZOLAM DRIP 50 mg/50mL 50 ML IV SCH ×5 (04:03→23:58)
[2020-08-30] MEDS: InsuLIN REG 1unit/0.01ml Soln (100units/ml) SC SCH ×4 (05:20→17:15)
[2020-08-30] MEDS: ACCU-CHEK COMFORT CURVE STRIP VI SCH ×4 (05:20→17:17)
[2020-08-30 06:03] LABS: Albumin 1.1 g/dL (3.4-5.0); Calcium 6.9 mg/dL (8.5-10.1); Magnesium 1.8 mg/dL (1.6-2.6); Potassium 4.7 mmol/L (3.5-5.1)
[2020-08-30 06:09] LABS: BUN/Creatinine Ratio 17.8; Bilirubin, Total 0.7 mg/dL (0.2-1.0); Phosphorus 4.3 mg/dL (2.5-4.90)
[2020-08-30] MEDS: fentaNYL Drip 2500mCg/250mlNS 250 ML IV SCH (08:03)
[2020-08-30] MEDS: METOPROLOL TARTRATE 50 MG TAB PO SCH (10:00)
[2020-08-30] MEDS ORDERED: BUMETANIDE 2.5mg/10ml (0.25 mg/ml) INJ IV ONE (10:15)
[2020-08-30] MEDS: APIXABAN 5 MG TAB PO SCH ×2 (10:21→22:54)
[2020-08-30] MEDS: PANTOPRAZOLE 40 MG/10 ML VIAL INJ IV SCH (10:21)
[2020-08-30] MEDS: AMIODARONE HCL 200 MG TAB PO SCH (10:22)
[2020-08-30] MEDS: ASPirin 81 mg TAB PO SCH (10:22)
[2020-08-30] MEDS: PROPOFOL 100 ML IV SCH (10:30)
[2020-08-30] MEDS: ALBUMIN 25% 50 ML IV SCH ×2 (11:11→19:24)
[2020-08-30] MEDS: D5W/LACTATED RINGERS 1,000 ML IV SCH (11:49)
[2020-08-30 15:09] LABS: Protein, Urine 211.8 mg/dL (0.0-11.9)
[2020-08-30] MEDS ORDERED: BUMETANIDE INJECTION 25 MG in GIVE UN-DILUTED 0 ML IV SCH (16:30)
[2020-08-30] MEDS ORDERED: TPN PER PHARMACY IV NR ×9 (20:00)
[2020-08-30] MEDS: METOPROLOL TARTRATE 25 MG TAB PO SCH (21:34)
[2020-08-31] VITALS (100 sets, daily range): BP systolic 87–161; BP diastolic 41–113
[2020-08-31] MEDS: fentaNYL Drip 2500mCg/250mlNS 250 ML IV SCH (00:03)
[2020-08-31] MEDS: BUMETANIDE IV SCH ×2 (00:04→08:14)
[2020-08-31] MEDS: GIVE UN DILUTED IV SCH ×2 (00:04→08:14)
[2020-08-31] MEDS: D5W/LACTATED RINGERS 1,000 ML IV SCH (00:21)
[2020-08-31] MEDS: ACCU-CHEK COMFORT CURVE STRIP VI SCH ×4 (00:37→19:26)
[2020-08-31] MEDS: InsuLIN REG 1unit/0.01ml Soln (100units/ml) SC SCH ×4 (00:37→18:00)
[2020-08-31] MEDS: PIPERACILLIN-TAZOB 3.375GM 100 ML IV SCH ×2 (01:01→07:33)
[2020-08-31] MEDS: ALBUTEROL SULF 2.5 MG/0.5ML(0.5%) NEB SOLN NEB SCH ×5 (02:00→22:12)
[2020-08-31] MEDS: IPRATROPIUM BROM 0.5 MG/2.5ML INH SOL NEB SCH ×5 (02:00→22:13)
[2020-08-31] MEDS: ALBUMIN 25% 50 ML IV SCH (02:15)
[2020-08-31] MEDS: PHENYLEPHRINE INJ 80 MG in SODIUM CHL 0.9% 242 ML IV SCH (05:04)
[2020-08-31] MEDS ORDERED: ALBUMIN 25% 100 ML IV ONE (05:15)
[2020-08-31 05:22] LABS: Basophils # (auto) 0.1 10 ^3/uL (0-0.2); Basophils % (auto) 0.4 % (0.0-2.0); Eosinophils # (auto) 0.1 10 ^3/uL (0-0.8); Eosinophils % (auto) 0.3 % (0.0-7.0); Hematocrit 25.5 % (41.0-53.0); Hemoglobin 8.8 g/dL (13.5-17.5); Lymphocytes # (auto) 0.3 10 ^3/uL (0.4-5.4); Lymphocytes % (auto) 1.7 % (10.0-50.0); Mean Corpuscular Hemoglobin 35.1 pg (28.0-32.0); Mean Corpuscular Hgb Conc. 34.4 g/dL (32.0-36.0); Mean Corpuscular Volume 102.2 fL (80.0-100.0); Monocytes # (auto) 0.5 10 ^3/uL (0-1.3); Neutrophils # (auto) 15.1 10 ^3/uL (1.6-8.6); Neutrophils % (auto) 94.6 % (37.0-80.0); Red Cell Distribution Width 13.3 % (11.8-14.3)
[2020-08-31 05:43] LABS: Potassium 4.6 mmol/L (3.5-5.1)
[2020-08-31 05:52] LABS: Albumin 1.4 g/dL (3.4-5.0); BUN/Creatinine Ratio 17.8; Bilirubin, Total 0.8 mg/dL (0.2-1.0); Calcium 7.1 mg/dL (8.5-10.1); Magnesium 1.8 mg/dL (1.6-2.6); Phosphorus 4.2 mg/dL (2.5-4.90); Total Protein 5.2 g/dL (6.4-8.2)
[2020-08-31] MEDS ORDERED: BUMETANIDE INJECTION 25 MG in GIVE UN-DILUTED 0 ML IV SCH (07:30)
[2020-08-31] MEDS: NOREPINEPHRINE 8 MG/250ML KIT 250 ML IV SCH (07:47)
[2020-08-31] MEDS: METOPROLOL TARTRATE 25 MG TAB PO SCH ×3 (09:14→22:00)
[2020-08-31] MEDS: PROPOFOL 100 ML IV SCH (10:30)
[2020-08-31] MEDS ORDERED: MEROPENEM 500MG IVPB 50 ML IV ONE (11:00)
[2020-08-31] MEDS ORDERED: SODIUM CHLORIDE 0.9% 1,000 ML IV SCH (11:00)
[2020-08-31] MEDS: PANTOPRAZOLE 40 MG/10 ML VIAL INJ IV SCH (11:32)
[2020-08-31 12:14] LABS: % Iron Saturation 25.2 % (20-55)
[2020-08-31] MEDS: MIDAZOLAM DRIP 50 mg/50mL 50 ML IV SCH ×3 (12:19→22:13)
[2020-08-31 12:23] LABS: Ferritin 964.1 ng/mL (10-322)
[2020-08-31 15:02] LABS: INR 1.26 (0.9-1.15); Partial Thromboplastin Time 42.8 sec (23.0-31.2)
[2020-08-31] MEDS: BUMETANIDE INJECTION 25 MG in GIVE UN-DILUTED 0 ML IV SCH (16:10)
[2020-08-31] MEDS ORDERED: HEPARIN SODIUM (PORCINE) 5000 UNITS/ML 1ML VIAL IV ONE (18:30)
[2020-08-31] MEDS ORDERED: HEPARIN 1,000 UNITS/ml 1ML VIAL IV ONE ×2 (18:45)
[2020-08-31] MEDS ORDERED: TPN PER PHARMACY IV NR ×9 (20:00)
[2020-08-31] MEDS: MEROPENEM 500MG IVPB 50 ML IV SCH (22:12)
[2020-09-01] VITALS (102 sets, daily range): BP systolic 88–143; BP diastolic 43–67
[2020-09-01] MEDS: ACCU-CHEK COMFORT CURVE STRIP VI SCH ×4 (00:57→18:23)
[2020-09-01] MEDS: BUMETANIDE INJECTION 25 MG in GIVE UN-DILUTED 0 ML IV SCH ×2 (01:43→10:22)
[2020-09-01] MEDS: ALBUTEROL SULF 2.5 MG/0.5ML(0.5%) NEB SOLN NEB SCH ×6 (02:46→22:43)
[2020-09-01] MEDS: IPRATROPIUM BROM 0.5 MG/2.5ML INH SOL NEB SCH ×6 (02:46→22:43)
[2020-09-01] MEDS: InsuLIN REG 1unit/0.01ml Soln (100units/ml) SC SCH ×4 (06:00→18:00)
[2020-09-01 06:18] LABS: Hemoglobin 8.1 g/dL (13.5-17.5)
[2020-09-01 06:20] LABS: Hematocrit 23.2 % (41.0-53.0); Mean Corpuscular Hgb Conc. 34.8 g/dL (32.0-36.0); Mean Corpuscular Volume 100.6 fL (80.0-100.0); Red Blood Cells 2.31 10^6/uL (4.5-5.90); Red Cell Distribution Width 13.2 % (11.8-14.3); White Blood Cell 13.5 10^3/uL (4.4-10.8)
[2020-09-01 06:36] LABS: Basophils % (manual) 0 (0.0-2.0); Blast Cells 0; Eosinophils % (manual) 0 (0-7); Promyelocytes % 0; Reactive Lymphocytes 0
[2020-09-01 07:02] LABS: Band Neutrophils % (manual) 33; Lymphocytes % (manual) 3 (10.0-50.0); Metamyelocytes % 1; Monocytes % (manual) 3 (0-12); Myelocytes % 2
[2020-09-01 07:07] LABS: Albumin 1.6 g/dL (3.4-5.0); Bilirubin, Total 0.7 mg/dL (0.2-1.0); Calcium 7.2 mg/dL (8.5-10.1); Magnesium 2.2 mg/dL (1.6-2.6); Phosphorus 4.4 mg/dL (2.5-4.90); Total Protein 5.4 g/dL (6.4-8.2)
[2020-09-01] MEDS: fentaNYL Drip 2500mCg/250mlNS 250 ML IV SCH (09:39)
[2020-09-01] MEDS: PHENYLEPHRINE INJ 80 MG in SODIUM CHL 0.9% 242 ML IV SCH (09:40)
[2020-09-01] MEDS: MEROPENEM 500MG IVPB 50 ML IV SCH (10:22)
[2020-09-01] MEDS: PANTOPRAZOLE 40 MG/10 ML VIAL INJ IV SCH (10:23)
[2020-09-01] MEDS: FOLIC ACID 1 MG TAB PO SCH (10:23)
[2020-09-01] MEDS: PROPOFOL 100 ML IV SCH (10:24)
[2020-09-01] MEDS: METOPROLOL TARTRATE 25 MG TAB PO SCH ×2 (10:24→22:00)
[2020-09-01] MEDS: THIAMINE HCL 100 MG TAB PO SCH (10:24)
[2020-09-01] MEDS ORDERED: TPN PER PHARMACY 0 ML IV SCH (12:00)
[2020-09-01] MEDS: NOREPINEPHRINE 8 MG/250ML KIT 250 ML IV SCH (12:30)
[2020-09-01] MEDS ORDERED: ALBUMIN 25% 100 ML IV ONE (14:36)
[2020-09-01 16:08] LABS: Folate (Folic Acid) 11.61 ng/mL (5.38-24)
[2020-09-01] MEDS: MIDAZOLAM DRIP 50 mg/50mL 50 ML IV SCH (17:30)
[2020-09-01] MEDS ORDERED: TPN PER PHARMACY IV NR ×9 (20:00)
[2020-09-02] VITALS (103 sets, daily range): BP systolic 105–148; BP diastolic 46–61
[2020-09-02] MEDS: MIDAZOLAM DRIP 50 mg/50mL 50 ML IV SCH ×4 (00:33→17:49)
[2020-09-02] MEDS: fentaNYL Drip 2500mCg/250mlNS 250 ML IV SCH ×2 (00:35→17:46)
[2020-09-02] MEDS: ALBUTEROL SULF 2.5 MG/0.5ML(0.5%) NEB SOLN NEB SCH ×6 (02:10→21:51)
[2020-09-02] MEDS: IPRATROPIUM BROM 0.5 MG/2.5ML INH SOL NEB SCH ×6 (02:10→21:51)
[2020-09-02 05:06] LABS: Basophils # (auto) 0.1 10 ^3/uL (0-0.2); Basophils % (auto) 0.6 % (0.0-2.0); Eosinophils # (auto) 0 10 ^3/uL (0-0.8); Eosinophils % (auto) 0.5 % (0.0-7.0); Hematocrit 20.1 % (41.0-53.0); Hemoglobin 7.2 g/dL (13.5-17.5); Lymphocytes # (auto) 0.3 10 ^3/uL (0.4-5.4); Lymphocytes % (auto) 2.9 % (10.0-50.0); Mean Corpuscular Hemoglobin 35.7 pg (28.0-32.0); Mean Corpuscular Hgb Conc. 35.8 g/dL (32.0-36.0); Mean Corpuscular Volume 99.5 fL (80.0-100.0); Monocytes # (auto) 0.4 10 ^3/uL (0-1.3); Monocytes % (auto) 4.3 % (0.0-12.0); Neutrophils # (auto) 8.2 10 ^3/uL (1.6-8.6); Neutrophils % (auto) 91.7 % (37.0-80.0); Nucleated Red Blood Cells % 0.1 %; Red Blood Cells 2.01 10^6/uL (4.5-5.90); Red Cell Distribution Width 13.6 % (11.8-14.3); White Blood Cell 8.9 10^3/uL (4.4-10.8)
[2020-09-02 05:21] LABS: Albumin 1.6 g/dL (3.4-5.0); Calcium 7.3 mg/dL (8.5-10.1); Magnesium 2.3 mg/dL (1.6-2.6); Potassium 4.1 mmol/L (3.5-5.1)
[2020-09-02 05:24] LABS: BUN/Creatinine Ratio 16.1; Bilirubin, Total 0.5 mg/dL (0.2-1.0); Phosphorus 3.4 mg/dL (2.5-4.90)
[2020-09-02] MEDS: InsuLIN REG 1unit/0.01ml Soln (100units/ml) SC SCH ×4 (06:00→17:45)
[2020-09-02] MEDS: ACCU-CHEK COMFORT CURVE STRIP VI SCH ×4 (06:00→17:33)
[2020-09-02] MEDS ORDERED: SODIUM CHL 0.9% 1000 ML BAG XX ONE (07:00)
[2020-09-02] MEDS: PHENYLEPHRINE INJ 80 MG in SODIUM CHL 0.9% 242 ML IV SCH (07:31)
[2020-09-02] MEDS: PROPOFOL 100 ML IV SCH (07:32)
[2020-09-02] MEDS: METOPROLOL TARTRATE 25 MG TAB PO SCH ×2 (09:25→20:30)
[2020-09-02] MEDS: PANTOPRAZOLE 40 MG/10 ML VIAL INJ IV SCH (09:25)
[2020-09-02] MEDS: FOLIC ACID 1 MG TAB PO SCH (09:25)
[2020-09-02] MEDS: THIAMINE HCL 100 MG TAB PO SCH (09:25)
[2020-09-02] MEDS: NOREPINEPHRINE 8 MG/250ML KIT 250 ML IV SCH (09:38)
[2020-09-02 13:04] LABS: Urine Bacteria NONE SEEN /hpf (None Seen); Urine Blood 3+ /uL (Negative); Urine Specific Gravity 1.017 (1.001-1.035); Urine WBC 740 /hpf (0 - 3)
[2020-09-02] MEDS ORDERED: TPN PER PHARMACY IV NR ×9 (20:00)
[2020-09-02] MEDS ORDERED: EPOETIN ALFA-EPBX 4,000 UNIT/ML VIAL SC ONE (21:00)
[2020-09-03] VITALS (104 sets, daily range): BP systolic 97–145; BP diastolic 42–69
[2020-09-03] MEDS: MIDAZOLAM DRIP 50 mg/50mL 50 ML IV SCH ×3 (00:47→18:53)
[2020-09-03] MEDS: ALBUTEROL SULF 2.5 MG/0.5ML(0.5%) NEB SOLN NEB SCH ×6 (02:21→22:27)
[2020-09-03] MEDS: IPRATROPIUM BROM 0.5 MG/2.5ML INH SOL NEB SCH ×6 (02:22→22:27)
[2020-09-03] MEDS: InsuLIN REG 1unit/0.01ml Soln (100units/ml) SC SCH ×5 (06:00→23:52)
[2020-09-03] MEDS: ACCU-CHEK COMFORT CURVE STRIP VI SCH ×5 (06:00→23:52)
[2020-09-03 06:40] LABS: Hematocrit 20.8 % (41.0-53.0); Hemoglobin 7.4 g/dL (13.5-17.5); Mean Corpuscular Hemoglobin 35.3 pg (28.0-32.0); Mean Corpuscular Hgb Conc. 35.4 g/dL (32.0-36.0); Mean Corpuscular Volume 99.5 fL (80.0-100.0); Red Blood Cells 2.09 10^6/uL (4.5-5.90); Red Cell Distribution Width 13.7 % (11.8-14.3); White Blood Cell 11.4 10^3/uL (4.4-10.8)
[2020-09-03 06:50] LABS: Band Neutrophils % (manual) 0; Basophils % (manual) 0 (0.0-2.0); Blast Cells 0; Eosinophils % (manual) 0 (0-7); Metamyelocytes % 0; Myelocytes % 0; Promyelocytes % 0; Reactive Lymphocytes 0
[2020-09-03 07:07] LABS: Calcium 7.4 mg/dL (8.5-10.1)
[2020-09-03 07:13] LABS: Albumin 1.4 g/dL (3.4-5.0); Bilirubin, Total 0.5 mg/dL (0.2-1.0); Magnesium 2.5 mg/dL (1.6-2.6); Phosphorus 3.6 mg/dL (2.5-4.90); Total Protein 5.2 g/dL (6.4-8.2)
[2020-09-03 08:04] LABS: Lymphocytes % (manual) 4 (10.0-50.0); Monocytes % (manual) 2 (0-12)
[2020-09-03] MEDS: PHENYLEPHRINE INJ 80 MG in SODIUM CHL 0.9% 242 ML IV SCH (10:00)
[2020-09-03] MEDS: PROPOFOL 100 ML IV SCH (10:30)
[2020-09-03] MEDS: PANTOPRAZOLE 40 MG/10 ML VIAL INJ IV SCH (11:04)
[2020-09-03] MEDS: FOLIC ACID 1 MG TAB PO SCH (11:04)
[2020-09-03] MEDS: THIAMINE HCL 100 MG TAB PO SCH (11:04)
[2020-09-03] MEDS: METOPROLOL TARTRATE 25 MG TAB PO SCH ×2 (11:06→19:43)
[2020-09-03] MEDS ORDERED: HEPARIN SODIUM (PORCINE) 5000 UNITS/ML 1ML VIAL IV ONE (12:15)
[2020-09-03] MEDS ORDERED: ALBUMIN 25% 100 ML IV ONE (12:15)
[2020-09-03] MEDS: NOREPINEPHRINE 8 MG/250ML KIT 250 ML IV SCH (12:30)
[2020-09-03] MEDS: fentaNYL Drip 2500mCg/250mlNS 250 ML IV SCH (18:51)
[2020-09-03] MEDS ORDERED: TPN PER PHARMACY IV NR ×15 (20:00)
[2020-09-04] VITALS (104 sets, daily range): BP systolic 86–127; BP diastolic 39–67
[2020-09-04] MEDS: ALBUTEROL SULF 2.5 MG/0.5ML(0.5%) NEB SOLN NEB SCH ×5 (02:00→22:06)
[2020-09-04] MEDS: IPRATROPIUM BROM 0.5 MG/2.5ML INH SOL NEB SCH ×5 (02:00→22:06)
[2020-09-04 05:25] LABS: Albumin 1.5 g/dL (3.4-5.0); Calcium 7.4 mg/dL (8.5-10.1); Magnesium 2.3 mg/dL (1.6-2.6)
[2020-09-04 05:29] LABS: BUN/Creatinine Ratio 15.1; Bilirubin, Total 0.4 mg/dL (0.2-1.0); Phosphorus 3.3 mg/dL (2.5-4.90); Total Protein 5.1 g/dL (6.4-8.2)
[2020-09-04] MEDS: ACCU-CHEK COMFORT CURVE STRIP VI SCH ×3 (06:00→17:57)
[2020-09-04] MEDS: InsuLIN REG 1unit/0.01ml Soln (100units/ml) SC SCH ×3 (06:00→17:57)
[2020-09-04] MEDS: fentaNYL Drip 2500mCg/250mlNS 250 ML IV SCH ×2 (06:44→18:29)
[2020-09-04] MEDS: FOLIC ACID 1 MG TAB PO SCH (10:00)
[2020-09-04] MEDS: ACETYLCYSTEINE 10 %(100MG/ML) SOL 4ML NEB SCH ×2 (10:00→18:48)
[2020-09-04] MEDS: PANTOPRAZOLE 40 MG/10 ML VIAL INJ IV SCH (10:00)
[2020-09-04] MEDS: METOPROLOL TARTRATE 25 MG TAB PO SCH ×2 (10:00→22:25)
[2020-09-04] MEDS: THIAMINE HCL 100 MG TAB PO SCH (10:00)
[2020-09-04] MEDS: PROPOFOL 100 ML IV SCH (10:30)
[2020-09-04] MEDS: PHENYLEPHRINE INJ 80 MG in SODIUM CHL 0.9% 242 ML IV SCH (10:49)
[2020-09-04] MEDS: NOREPINEPHRINE 8 MG/250ML KIT 250 ML IV SCH (12:30)
[2020-09-04] MEDS: MIDAZOLAM DRIP 50 mg/50mL 50 ML IV SCH (13:00)
[2020-09-04 13:17] LABS: Basophils # (auto) 0.1 10 ^3/uL (0-0.2); Eosinophils # (auto) 0.1 10 ^3/uL (0-0.8); Hemoglobin 7.1 g/dL (13.5-17.5); Nucleated Red Blood Cells % 0.1 %; Red Cell Distribution Width 13.9 % (11.8-14.3)
[2020-09-04 13:19] LABS: Basophils % (auto) 0.6 % (0.0-2.0); Eosinophils % (auto) 1.2 % (0.0-7.0); Hematocrit 20.5 % (41.0-53.0); Lymphocytes # (auto) 0.6 10 ^3/uL (0.4-5.4); Lymphocytes % (auto) 5.5 % (10.0-50.0); Mean Corpuscular Hemoglobin 34.7 pg (28.0-32.0); Mean Corpuscular Hgb Conc. 34.8 g/dL (32.0-36.0); Mean Corpuscular Volume 99.8 fL (80.0-100.0); Monocytes # (auto) 0.5 10 ^3/uL (0-1.3); Monocytes % (auto) 4.6 % (0.0-12.0); Neutrophils # (auto) 10.3 10 ^3/uL (1.6-8.6); Neutrophils % (auto) 88.1 % (37.0-80.0); Red Blood Cells 2.05 10^6/uL (4.5-5.90); White Blood Cell 11.7 10^3/uL (4.4-10.8)
[2020-09-04 13:43] LABS: Calcium 7.6 mg/dL (8.5-10.1); Potassium 4.1 mmol/L (3.5-5.1)
[2020-09-04] MEDS ORDERED: TPN PER PHARMACY IV NR ×10 (20:00)
[2020-09-05] VITALS (64 sets, daily range): BP systolic 95–137; BP diastolic 48–67
[2020-09-05] MEDS: ACCU-CHEK COMFORT CURVE STRIP VI SCH ×3 (00:09→12:20)
[2020-09-05] MEDS: IPRATROPIUM BROM 0.5 MG/2.5ML INH SOL NEB SCH ×3 (02:00→11:01)
[2020-09-05] MEDS: ALBUTEROL SULF 2.5 MG/0.5ML(0.5%) NEB SOLN NEB SCH ×3 (02:00→11:01)
[2020-09-05 05:12] LABS: Lymphocytes # (auto) 0.5 10 ^3/uL (0.4-5.4); Lymphocytes % (auto) 3.9 % (10.0-50.0)
[2020-09-05 05:14] LABS: Basophils # (auto) 0 10 ^3/uL (0-0.2); Basophils % (auto) 0.3 % (0.0-2.0); Eosinophils # (auto) 0.2 10 ^3/uL (0-0.8); Eosinophils % (auto) 1.1 % (0.0-7.0); Hematocrit 21.6 % (41.0-53.0); Hemoglobin 7.8 g/dL (13.5-17.5); Mean Corpuscular Hemoglobin 36.1 pg (28.0-32.0); Mean Corpuscular Hgb Conc. 36.2 g/dL (32.0-36.0); Mean Corpuscular Volume 99.8 fL (80.0-100.0); Monocytes # (auto) 0.5 10 ^3/uL (0-1.3); Monocytes % (auto) 3.6 % (0.0-12.0); Neutrophils # (auto) 12.8 10 ^3/uL (1.6-8.6); Neutrophils % (auto) 91.1 % (37.0-80.0); Red Blood Cells 2.17 10^6/uL (4.5-5.90); Red Cell Distribution Width 13.8 % (11.8-14.3); White Blood Cell 14.1 10^3/uL (4.4-10.8)
[2020-09-05] MEDS: MIDAZOLAM DRIP 50 mg/50mL 50 ML IV SCH (05:19)
[2020-09-05 05:44] LABS: Albumin 1.3 g/dL (3.4-5.0); Calcium 7.4 mg/dL (8.5-10.1); Magnesium 2.2 mg/dL (1.6-2.6)
[2020-09-05 05:46] LABS: % Iron Saturation 19.2 % (20-55)
[2020-09-05 05:50] LABS: BUN/Creatinine Ratio 15.2; Bilirubin, Total 0.4 mg/dL (0.2-1.0); Phosphorus 3.4 mg/dL (2.5-4.90); Pre Albumin 8.7 mg/dL (20.0-40.0)
[2020-09-05] MEDS: InsuLIN REG 1unit/0.01ml Soln (100units/ml) SC SCH ×3 (06:00→12:00)
[2020-09-05] MEDS ORDERED: SODIUM CHL 0.9% 1000 ML BAG XX ONE (07:00)
[2020-09-05] MEDS: PHENYLEPHRINE INJ 80 MG in SODIUM CHL 0.9% 242 ML IV SCH (07:33)
[2020-09-05] MEDS: PROPOFOL 100 ML IV SCH (07:35)
[2020-09-05] MEDS: NOREPINEPHRINE 8 MG/250ML KIT 250 ML IV SCH (07:40)
[2020-09-05] MEDS: ACETYLCYSTEINE 10 %(100MG/ML) SOL 4ML NEB SCH (09:04)
[2020-09-05] MEDS: FOLIC ACID 1 MG TAB PO SCH (09:51)
[2020-09-05] MEDS: THIAMINE HCL 100 MG TAB PO SCH (09:51)
[2020-09-05] MEDS: PANTOPRAZOLE 40 MG/10 ML VIAL INJ IV SCH (09:51)
[2020-09-05] MEDS: METOPROLOL TARTRATE 25 MG TAB PO SCH (10:00)
[2020-09-05] MEDS: fentaNYL Drip 2500mCg/250mlNS 250 ML IV SCH (11:05)
[2020-09-05] MEDS ORDERED: LORazepam 2MG/ML-1ML VIAL IV PRN (15:15)
[2020-09-05] MEDS ORDERED: MORPHINE SULFATE INJECTION 2 MG/ML SYRG IV PRN (15:15)
[2020-09-05] MEDS ORDERED: TPN PER PHARMACY IV NR ×9 (20:00)
== END 2020-09-05 18:34 | DRG 870 ==
LOC: EDSEX 16:31 → ER 16:31 → EDBD 16:31 → TELE 20:41 → EDBD 20:41 → DOU IN ICU 23:06
PROVIDERS: ADMIT Nurse Practitioner; ATTEND Internal Medicine
PROC: 5A1955Z Respiratory Ventilation, Greater than 96 Consecutive Hours (ICD-10-PCS; principal; 2020-08-17)
PROC: 0BH17EZ Insertion of Endotracheal Airway into Trachea, Via Natural or Artificial Opening (ICD-10-PCS; 2020-08-17)
PROC: 4A143B0 Monitoring of Venous Pressure, Central, Percutaneous Approach (ICD-10-PCS; 2020-08-17)
PROC: 02HV33Z Insertion of Infusion Device into Superior Vena Cava, Percutaneous Approach (ICD-10-PCS; 2020-08-17)
PROC: 5A09357 Assistance with Respiratory Ventilation, Less than 24 Consecutive Hours, Continuous Positive Airway Pressure (ICD-10-PCS; 2020-08-22)
PROC: 5A09457 Assistance with Respiratory Ventilation, 24-96 Consecutive Hours, Continuous Positive Airway Pressure (ICD-10-PCS; 2020-08-23)
PROC: 5A09457 Assistance with Respiratory Ventilation, 24-96 Consecutive Hours, Continuous Positive Airway Pressure (ICD-10-PCS; 2020-08-25)
PROC: 03HY32Z Insertion of Monitoring Device into Upper Artery, Percutaneous Approach (ICD-10-PCS; 2020-08-27)
PROC: 4A133B1 Monitoring of Arterial Pressure, Peripheral, Percutaneous Approach (ICD-10-PCS; 2020-08-27)
PROC: 4A133J1 Monitoring of Arterial Pulse, Peripheral, Percutaneous Approach (ICD-10-PCS; 2020-08-27)
PROC: 5A1955Z Respiratory Ventilation, Greater than 96 Consecutive Hours (ICD-10-PCS; 2020-08-27)
PROC: 0BH17EZ Insertion of Endotracheal Airway into Trachea, Via Natural or Artificial Opening (ICD-10-PCS; 2020-08-27)
PROC: 0B9D8ZX Drainage of Right Middle Lung Lobe, Via Natural or Artificial Opening Endoscopic, Diagnostic (ICD-10-PCS; 2020-08-29)
PROC: 06HM33Z Insertion of Infusion Device into Right Femoral Vein, Percutaneous Approach (ICD-10-PCS; 2020-09-01)
PROC: B54BZZA Ultrasonography of Right Lower Extremity Veins, Guidance (ICD-10-PCS; 2020-09-01)
PROC: 5A1D70Z Performance of Urinary Filtration, Intermittent, Less than 6 Hours Per Day (ICD-10-PCS; 2020-09-01)
PROC: 5A1D70Z Performance of Urinary Filtration, Intermittent, Less than 6 Hours Per Day (ICD-10-PCS; 2020-09-03)
DX: A41.9 Sepsis, unspecified organism (principal); J69.0 Pneumonitis due to inhalation of food and vomit; I21.A1 Myocardial infarction type 2; G92 Toxic encephalopathy; J96.21 Acute and chronic respiratory failure with hypoxia; R65.21 Severe sepsis with septic shock; T67.01XA Heatstroke and sunstroke, initial encounter; E44.0 Moderate protein-calorie malnutrition; I47.1 Supraventricular tachycardia; M62.82 Rhabdomyolysis; R64 Cachexia; E87.0 Hyperosmolality and hypernatremia; E87.1 Hypo-osmolality and hyponatremia; N17.9 Acute kidney failure, unspecified; Z68.1 Body mass index [BMI] 19.9 or less, adult; J98.11 Atelectasis; K59.00 Constipation, unspecified; F10.229 Alcohol dependence with intoxication, unspecified; R68.0 Hypothermia, not associated with low environmental temperature; Z20.822 Contact with and (suspected) exposure to COVID-19; I48.91 Unspecified atrial fibrillation; J43.9 Emphysema, unspecified; E16.2 Hypoglycemia, unspecified; X30.XXXA Exposure to excessive natural heat, initial encounter; E87.6 Hypokalemia; D64.9 Anemia, unspecified; Y93.89 Activity, other specified; Y92.89 Other specified places as the place of occurrence of the external cause; Y99.8 Other external cause status
CPT/HCPCS: 31500; 31624; 36415; 36556; 36600; 51702; 70450; 71045; 74018; 80048; 80053; 80061; 80076; 80202; 80307; 80320; 81001; 82040; 82043; 82140; 82270; 82550; 82553; 82570; 82607; 82728; 82746; 82805; 82962; 83036; 83540; 83550; 83605; 83735; 83880; 84100; 84156; 84443; 84478; 84484; 85007; 85025; 85027; 85049; 85610; 85730; 86738; 87040; 87070; 87077; 87081; 87086; 87088; 87186; 87205; 87278; 87340; 87426; 90935; 93005; 93306; 94002; 94003; 94640; 94660; 95819; 96374; 97110; 97163; 99291; C9113; G0378; J0171; J0690; J0696; J1815; J2185; J2250; J2543; J2704; J3480; J7060; J7131; P9047